=== PATIENT | female | born 1950 | race Caucasian/White ===

== ENCOUNTER → 2025-05-12 | Outpatient (CLI) | payer OTHER ==
--- NOTE | 2025-05-13 14:19 | HMCIMG ---
EXAM: CR RIGHT HIP, 3 VIEW CLINICAL HISTORY: Pain in right hip. COMPARISON: None provided. FINDINGS: BONES: No acute fracture or destructive osseous lesion identified. JOINTS: Severe degenerative osteoarthritis involving the right hip joint, characterized by marked joint space narrowing, subchondral sclerosis, subchondral cyst formation within the acetabulum, and periarticular osteophyte formation. Mild degenerative osteoarthritic changes noted in the left hip joint with minimal joint space narrowing and early osteophytosis. No dislocation. SOFT TISSUES: Soft tissues appear unremarkable. No calcification or foreign body identified. IMPRESSION: * Severe degenerative osteoarthritis of the right hip with joint space loss, subchondral sclerosis, cystic changes, and periarticular osteophytosis. * Mild degenerative osteoarthritis of the left hip. * No acute fracture or dislocation. /[place]
== END | disposition home or self-care (01) ==
LOC: RAH 13:44
PROVIDERS: ATTEND Internal Medicine
DX: M16.0 Bilateral primary osteoarthritis of hip (principal); M25.751 Osteophyte, right hip; M25.551 Pain in right hip; M85.68 Other cyst of bone, other site
CPT/HCPCS: 73502